=== PATIENT | male | born 1985 | race Caucasian/White ===

== ENCOUNTER 2017-02-02 18:11 | Emergency (ER) | payer SELFPAY ==
[~2017-02-02] VITALS: Ht 188 cm; Wt 117.2 kg
[~2017-02-02 18:11] MED LIST: 12 HOUR DECONG120 M1 PO; FLEXERIL10 MG PO; KEFLEX500 MG PO; NAPROSYN500 MG PO; NO MEDS; NOHOMEMEDS; PREDNISONE20 MG PO; VENTOLIN HFA18 GM IH; ZITHROMAX Z-PA250 MG PO
[2017-02-02 20:32] VITALS: BP 143/90
== END 2017-02-02 20:33 | disposition home or self-care (01) ==
LOC: EME 18:11
DX: S93.402A Sprain of unspecified ligament of left ankle, initial encounter (principal); W51.XXXA Accidental striking against or bumped into by another person, initial encounter; Y93.64 Activity, baseball; Y92.320 Baseball field as the place of occurrence of the external cause
CPT/HCPCS: 73610; 99281; 99283